=== PATIENT | female | born 1965 ===

== ENCOUNTER 2023-03-24 09:11 | Outpatient (CLI) | payer OTHER | END 2023-03-24 09:30 | disposition home or self-care (01) | LOC: MRI 09:11 | PROVIDERS: ATTEND Specialist | DX: M51.36 Other intervertebral disc degeneration, lumbar region (principal); M16.0 Bilateral primary osteoarthritis of hip; M17.0 Bilateral primary osteoarthritis of knee | CPT/HCPCS: 72148 ==